=== PATIENT | female | born 1950 | race Caucasian/White ===

== ENCOUNTER 2017-01-27 13:12 | Inpatient (IN) | payer OTHER ==
--- NOTE | ~2017-01-27 | CN ---
Consultation Report [facility] [address] [place]. [address] NAME: YAEL PAYAN : 52 STATUS : ADM Alicia PAT#: [id number] AGE: 66 ADM/REG DATE : 01/27/17 MR#: [id number] REPORT SERV DATE: 01/28/17 DICTATED BY: MAHAMED TEE DATE: 01/28/17 REPORT STATUS : Draft TRANSCRIBED BY: MODL DATE: 01/28/17 INPATIENT CONSULT NOTE DATE OF CONSULTATION: 01/28/2017 REASON FOR CONSULTATION: Bloody diarrhea. HISTORY OF PRESENT ILLNESS: Mrs. Payan is a very pleasant 66-year-old female with past medical history of ADHD, depression, anxiety, hypertension, and diverticulosis as well as prior gastrectomy for gastric volvulus and most recently colonoscopy approximately six months ago with Dr. Zaina Kline with finding of several polyps, who presents with complaints of abdominal cramping and bloody diarrhea. The patient states that she was in her normal state of health until two days prior to this presentation when she started having abdominal cramping that was soon associated with passing of rome blood and blood clots. No fevers or chills. No chest pain. No shortness of breath. No nausea or vomiting. No recent sick contacts. Upon presentation, the patient was noted to have a CBC with a white count of 18.1 and a hemoglobin of 14.5, and a platelet count of 321,000. CT of the abdomen and pelvis was performed, which demonstrated thickened appearance of the colonic wall in the descending and sigmoid colon with inflammation of adjacent fat indicating probable colitis. No other significant abnormalities were noted. GI was consulted for further evaluation and treatment. Due to a Cipro allergy, the patient was started on Zosyn for antibiotics. No stool studies were sent. REVIEW OF SYSTEMS: All systems reviewed and were negative aside from what was mentioned in the history of present illness. PAST MEDICAL HISTORY: Includes: 1. History of gastric volvulus, status post total gastrectomy. 2. ADHD. 3. Depression. 4. Anxiety. 5. History of hypertension. 6. History of diverticulosis. 7. Hiatal hernia. 8. GERD. 9. Tonsillectomy. 10.Bilateral salpingo-oophorectomy. 11.Hysterectomy. 12.Septoplasty and blepharoplasty. Consultation Report [facility] [address] [place]. [address] NAME: YAEL PAYAN : 52 STATUS : ADM Alicia PAT#: [id number] AGE: 66 ADM/REG DATE : 01/27/17 MR#: [id number] REPORT SERV DATE: 01/28/17 DICTATED BY: MAHAMED TEE DATE: 01/28/17 REPORT STATUS : Draft TRANSCRIBED BY: MODL DATE: 01/28/17 FAMILY HISTORY: The patient denies any family history of GI related malignancy. SOCIAL HISTORY: The patient denies any tobacco, alcohol, or IV drug use. ALLERGIES: THE PATIENT HAS ALLERGIES TO: 1. PHENERGAN. 2. CIPRO. 3. REGLAN. OUTPATIENT MEDICATIONS: 1. Tylenol. 2. Norvasc. 3. Adderall. 4. Hydrochlorothiazide. 5. Lamictal. 6. Ativan. 7. Remeron. 8. Effexor. PHYSICAL EXAMINATION: VITAL SIGNS: Most recent vital signs include a temperature of 97.9 with a T-max of 98.6, pulse of 66, blood pressure of 111/68, saturating 96% on room air. GENERAL INSPECTION: Reveals an elderly female, lying in bed, no apparent distress. HEENT: Normocephalic with ecchymoses around her orbits bilaterally, right greater than left, suspicious for recent head trauma. Sclerae nonicteric. Pupils are equal and round. Mucous membranes are moist. NECK: Supple without lymphadenopathy. HEART: Rate is regular with normal S1 and S2. LUNGS: Sounds clear to auscultation bilaterally without wheezes, rales, or rhonchi. ABDOMEN: Soft, nontender, nondistended with normoactive bowel sounds. EXTREMITIES: The patient has no cyanosis, clubbing, or edema. No jaundice or rash. No gross motor deficits. She is alert and oriented. Mood and affect are appropriate. Judgment appears to be intact. LABORATORY DATA: Most recent laboratory results include CBC that shows white count of 15.9, hemoglobin of 12.5, and a platelet count of 279,000. Comprehensive metabolic panel was mostly remarkable for potassium of 2.5, but was otherwise entirely unremarkable. DIAGNOSTIC STUDIES: CT of the abdomen and pelvis was reviewed personally by myself and is as noted in the history of present illness showing an area of thickening in the descending and sigmoid colon suggestive of colitis. ASSESSMENT AND PLAN: Ms. Payan is a very pleasant 66-year-old female with no significant past medical history, although it should be noted that the patient just had a colonoscopy Consultation Report [place] [id number] [place]. [address] NAME: YAEL PAYAN : 52 STATUS : ADM Alicia PAT#: [id number] AGE: 66 ADM/REG DATE : 01/27/17 MR#: [id number] REPORT SERV DATE: 01/28/17 DICTATED BY: MAHAMED TEE DATE: 01/28/17 REPORT STATUS : Draft TRANSCRIBED BY: MODL DATE: 01/28/17 approximately six months ago with her primary gastrologist is Dr. Zaina Kline, who now presents with abdominal cramping, bloody diarrhea, and findings of colitis on CT with an elevated white count. This is suspicious for infectious colitis, although ischemic colitis is also possibility, very highly doubtful that there is probability of malignancy given that the patient just recently had a colonoscopy within the past year. We would recommend proceeding with colonoscopy at this time as the patient has already undergone a bowel prep. However, stool studies are still in order at this point in time to rule out any obvious infectious agents regardless we would treat the patient with a 10-day course of antibiotics. Given her Cipro allergy, would give her Zosyn and transitioned to Augmentin as an outpatient. The patient can follow up with Dr. Kline as an outpatient when she is feeling well enough to go over biopsy results and to see if there are any further symptoms. We would also highly recommend correcting the patient's hypokalemia. Thank you very much for this interesting consult and allowing me to participate in Ms. Payan's care. Please call with any questions or concerns you may have. C/MODL Mahamed Tee MD / [id number] CC: Mahamed Cordero Jr, MD Arlene Donowitz, M.D.
--- NOTE | ~2017-01-27 | DS ---
Discharge Summary [facility] [address] [place]. [address] NAME: YAEL MORGAN : 52 STATUS : DIS IN PAT#: [id number] AGE: 66 ADM/REG DATE : 01/27/17 MR#: [id number] REPORT SERV DATE: 01/30/17 DICTATED BY: JR. CORDERO WILLIAM JOHN DATE: 01/29/17 REPORT STATUS : Draft TRANSCRIBED BY: GRACIELA DATE: 01/29/17 ADMISSION DATE: 01/27/2017 DISCHARGE DATE: 01/29/2017 DISCHARGE DIAGNOSES: Include: 1. Sigmoid and descending colon colitis. 2. Hematochezia. 3. Colonic stricture. 4. Mild acute kidney injury, which is resolved. 5. History of hypertension. 6. History of attention deficit hyperactivity disorder. 7. History of depression. 8. Hypokalemia. OPERATIONS/PROCEDURES AND TREATMENTS: Include: 1. Colonoscopy, which was incomplete on 01/28/2017, which showed a stricture at 60 mm proximal to the anus which was biopsied. She was unable to pass the scope beyond this point. 2. Blood cultures x2 done 01/27/2017 that were no growth to date. 3. C. diff by PCR on 01/28/2017 that was negative. 4. Cryptosporidium and Giardia antigen on 01/28/2017 that were negative. Fecal leukocytes on 01/28/2017 showed 6-10 white blood cells per high-powered field. 5. Chest x-ray done 01/27/2017 showed minimal right basilar atelectasis. Otherwise, no acute process. 6. CT of the abdomen and pelvis done 01/27/2017 showed thickened appearance of colonic cancino in the descending and sigmoid colon with inflammation in the adjacent fat indicating probable colitis. There was a small hiatal hernia. There was a low dense focal kayce posterior to the uncinate process of the pancreas possibly representing a cyst. Non-emergent followup should be considered. DISCHARGE MEDICATIONS: Include: 1. Norvasc 10 mg orally daily. 2. Adderall 60 mg orally daily. 3. Lamictal 400 mg orally daily. 4. Ativan 2 mg at bedtime. 5. Mirtazapine 45 mg orally twice a day. 6. Effexor XR 450 mg orally daily. 7. Hydrochlorothiazide 25 mg orally daily. 8. Tylenol as needed. 9. Augmentin 875 mg orally twice a day for 10 days. HOSPITAL COURSE: The patient was a 66-year-old female, presented to emergency room on 01/27/2017 with bright red blood per rectum. The patient has a long history including gastric volvulus with perforation and had a prolonged hospitalization with LTAC stay and multiple intraabdominal abscesses at that time. The patient is followed by Dr. Zaina Kline as an outpatient, had a recent colonoscopy. She started experiencing difficulty Discharge [address] [place]. [place]. [address] NAME: YAEL MORGAN : 51 STATUS : DIS IN PAT#: [id number] AGE: 66 ADM/REG DATE : 01/27/17 MR#: [id number] REPORT SERV DATE: 01/30/17 DICTATED BY: JR. CORDERO WILLIAM JOHN DATE: 01/29/17 REPORT STATUS : Draft TRANSCRIBED BY: GRACIELA DATE: 01/29/17 with diarrhea on Friday with abdominal pain and then developed some hematochezia and presented to the hospital. For initial exam, her heart rate was 101, blood pressure 113/69. She was afebrile. Respiratory rate 16. Exam showed the abdomen to be soft, mildly tender in the left lower quadrant. No guarding or rebound. Significant laboratory included a potassium of 3.2, bicarbonate of 25, BUN 24, creatinine 1.3. Liver function enzymes were normal. White blood count was 18.1. CT of the abdomen and pelvis as detailed above. The patient was felt to have colitis. She was started on Zosyn as she has an allergy to fluoroquinolones. She was seen in consultation by Dr. Montes of Gastroenterology and underwent a colonoscopy with the presence of a stricture at 60 cm and unable to pass the scope beyond that point. Biopsies were performed. Given that the patient has recently had a complete colonoscopy, Dr. Montes feels it is reasonable to discharge the patient. She had no further rectal bleeding, had no anemia. She will be discharged home on Augmentin 875 mg orally twice a day for 10 additional days. Regarding the peripancreatic cyst, followup is recommended. Regarding mild acute kidney injury, this resolved with IV fluid hydration. There were no other issues during this hospital stay. The patient will be discharged home today 01/29/2017. She will follow up with Dr. Zaina Kline in two to four weeks and Dr. Melani Lozano as scheduled on 02/04/2017. FOLLOWUP ISSUES: 1. Follow up with Gastroenterology. 2. Consider outpatient imaging with a CT of the abdomen and pelvis to follow up with the abnormal CT. DISCHARGE DIET: The patient is to advance her diet to regular as tolerated. ACTIVITY: Ad wei. For discharge exam and laboratory, please see daily progress note. This discharge took 33 minutes for patient encounter, coordination of care, and documentation. PEACE/GRACIELA Mahamed Cordero Jr, MD / [id number] CC: Discharge Summary [address] [address] NAME: YAEL MORGAN : 52 STATUS : DIS IN PAT#: [id number] AGE: 66 ADM/REG DATE : 01/27/17 MR#: [id number] REPORT SERV DATE: 01/30/17 DICTATED BY: JR. CORDERO WILLIAM JOHN DATE: 01/29/17 REPORT STATUS : Draft TRANSCRIBED BY: GRACIELA DATE: 01/29/17 Mahamed Cordero Jr, MD Arlene Donowitz, M.D.
--- NOTE | ~2017-01-27 | HP ---
History And Physical [place] [id number] [facility] [place]. [address] NAME: YAEL MORGAN : 52 STATUS : ADM Alicia PAT#: [id number] AGE: 66 ADM/REG DATE : 01/27/17 MR#: [id number] REPORT SERV DATE: 01/27/17 DICTATED BY: ROSANA PAIGE DATE: 01/27/17 REPORT STATUS : Draft TRANSCRIBED BY: MODMaia DATE: 01/27/17 DATE OF ADMISSION: 01/27/2017 CHIEF COMPLAINT: Abdominal pain and red blood per rectum for three days. HISTORY OF PRESENT ILLNESS: This is a very pleasant 66-year-old female. She does have a history of ADHD, depression, and hypertension. She had in 2009 gastric volvulus with perforation. She has had a prolonged hospitalization, prolonged rehab. Since then, she remained with some GERD. She is a patient of Dr. Zaina Kline. She did have a colonoscopy in the past. According to her, she is telling me that she has diverticulosis. She did have some rectal bleed according to Dr. Zaina Kline, with whom I talked personally, was related to hemorrhoids. She started to experience significant diarrhea on Friday and abdominal pain. That has been changed to red blood per rectum with some clots that had started last night and since then, she continued to have just red blood per rectum. The patient did not have any fever. No chest pain or shortness of breath. No cough. No sputum production. No hematemesis, no melena. No recent hospitalization. No sick contacts. No other complaints. After initial evaluation in the emergency room, the patient has been admitted to Hospitalist Service for further evaluation and treatment. PAST MEDICAL HISTORY: Significant for gastric volvulus, perforation, peritonitis, sepsis, septic shock, history of ADHD, depression, anxiety, history of hypertension, history of diverticulosis, hiatal hernia, total gastrectomy, and GERD. PAST SURGICAL HISTORY: Tonsillectomy, bilateral salpingo-oophorectomies, hysterectomy, partial gastrectomy, septoplasty, blepharoplasty. SOCIAL HISTORY: Denies tobacco, alcohol, or IV drugs. ALLERGIES: SHE IS ALLERGIC TO PHENERGAN, CIPRO, AND REGLAN. MEDICATIONS: At home include Tylenol, Norvasc, Adderall, hydrochlorothiazide, Lamictal, Ativan, Remeron, and Effexor. FAMILY HISTORY: Significant for coronary artery disease and hypertension. REVIEW OF SYSTEMS: A 14-point review of systems has been obtained and pertinent positive has been listed into the history of present illness. Otherwise, negative except those underlying above. OBJECTIVE: VITAL SIGNS: The patient is currently is afebrile. Blood pressure 113/69, heart rate 101, respiratory rate 16, and saturating 97% on room air. GENERAL: She is a very pleasant, well-developed, well-nourished female, in no acute distress. She is alert and oriented x3. Nonfocal. She follows all her commands appropriately. HEENT: Shows pupils equal, round, reactive to light. Extraocular movements intact. No JVD. No lymphadenopathy. No thyromegaly appreciated. History And Physical [address] [address] NAME: YAEL MORGAN : 52 STATUS : ADM Alicia PAT#: [id number] AGE: 66 ADM/REG DATE : 01/27/17 MR#: [id number] REPORT SERV DATE: 01/27/17 DICTATED BY: ROSANA PAIGE DATE: 01/27/17 REPORT STATUS : Draft TRANSCRIBED BY: MODMaia DATE: 01/27/17 CHEST: Eval shows bilateral air entry. Clear anteroposterior. No wheezes, crackles, or rhonchi appreciated. CARDIOVASCULAR: She has regular rate, slightly tachycardic. S1, S2 positive. No S3, no S4. No murmurs, rubs, or gallops appreciated. ABDOMEN: Soft, mildly tender on the left lower quadrant. No guarding. No rebound. EXTREMITIES: No clubbing, cyanosis, or edema. NEUROLOGIC: The patient is alert and oriented x3. She is nonfocal. She follows all her commands appropriately. LABORATORY DATA: Labs from today include sodium 139, potassium 3.2, chloride 103, CO2 of 25, BUN 24, creatinine is 1.28, glucose is 96. Her liver function test shows total bilirubin of 0.5, alkaline phosphatase 84, ALT 22, AST 11. Her white count is 18.1, hemoglobin 14.5, hematocrit 42.5, platelets are 321. Her INR is 1. There is a CT scan of the abdomen and pelvis that has been performed in the emergency room that has shown there is a thickened appearance of the colonic wall in the descending and sigmoid colon with inflammation of the fat, indicated probable colitis, small hiatal hernia, and low-density focal area posterior to the uncinate process of the pancreas which could represent a pancreatic cystic lesion, partial volume averaging of duodenal diverticulum and hysterectomy. ASSESSMENT: This is a very pleasant 66-year-old female presenting to [facility] with abdominal pain and rectal bleed with: 1. Sigmoid and descending colitis, suspect diverticulitis. 2. Red blood per rectum. 3. Mild acute kidney injury. 4. History of hypertension. 5. History of depression. 6. Attention deficit hyperactivity disorder. 7. Hypokalemia. PLAN: 1. The patient is going to be admitted to Hospitalist Service. We are going to place her on clear liquid diet. We are going to place her on Zosyn, panculture her. We will check a lactic acid. We will check also an abdominal arterial Doppler ultrasound of the mesenteric vessels. We are going to check all her stool studies and provide supportive care. We will consult GI, Dr. Zaina Kline, with whom I talked personally. Provide symptomatic pain and nausea control. 2. Rectal bleed likely secondary to above. We are going to provide H and H q.6 hours and transfuse as indicated, and keep the patient on clear liquid diet for right now. 3. Mild acute kidney injury. Vigorous IV hydration. Check UA and urine cultures as well. 4. Hypokalemia. We are going to replace her potassium as per protocol and also we are going to check magnesium level. 5. Hypertension. We will continue her home medication. Provide p.r.n. hydralazine as needed. 6. History of ADHD. Continue her home medication. 7. History of depression and anxiety. We will continue her home medications. We are going to provide reasonable pain and nausea control as well as GI and DVT prophylaxis History And Physical [place] [id number] [place]. [address] NAME: YAEL MORGAN : 52 STATUS : ADM Alicia PAT#: [id number] AGE: 66 ADM/REG DATE : 01/27/17 MR#: [id number] REPORT SERV DATE: 01/27/17 DICTATED BY: ROSANA PAIGE DATE: 01/27/17 REPORT STATUS : Draft TRANSCRIBED BY: MODL DATE: 01/27/17 with SCDs. That has been discussed extensively with the patient. All the questions have been answered in full. Further workup and recommendation pending above. It is worthwhile to note that the patient is going to be followed up by Dr. Jerry Gee. CF/MODL Rosana Paige M.D. / [id number] CC: MD Melani Moura M.D.
--- NOTE | ~2017-01-27 | EGD ---
EGD REPORT [facility] [address] [place] [address] NAME: RACHELLE GREGORIO : 52 STATUS : ADM Alicia PAT#: [id number] AGE: 66 ADM/REG DATE : 01/27/17 MR#: [id number] REPORT SERV DATE: 01/28/17 DICTATED BY: MAHAMED TEE DATE: 01/28/17 REPORT STATUS : Draft [facility]: [facility] DATE: 01/28/17 Endoscopy Center Patient Name: Rachelle Gregorio Date of : 1950 Attending MD: MAHAMED TEE MD Procedure Date No Time: 01/28/2017 Procedure: Colonoscopy Indications: Hematochezia Referring MD: AMILCAR MCGUIRE Medicines: Monitored Anesthesia Care Complications: No immediate complications. Estimated blood loss: Minimal. Procedure: Pre-Anesthesia Assessment: - ASA Grade Assessment: II - A patient with mild systemic disease. After I obtained informed consent, the scope was passed under direct vision. Throughout the procedure, the patient's blood pressure, pulse, and oxygen saturations were monitored continuously. The CF [id number] was introduced through the anus and advanced to the sigmoid colon. The colonoscopy was technically difficult and complex due to a tortuous colon. The patient tolerated the procedure well. The quality of the bowel preparation was fair. Findings: The perianal and digital rectal examinations were normal. Pertinent negatives include normal sphincter tone and no palpable rectal lesions. A benign-appearing, intrinsic severe stenosis was found at 60 cm proximal to the anus and was non-traversed. There was inflammed tissue at this point, causing obstruction to passage of the scope. Due to inflammation in the area, the scope was not able to be pass through this area. Biopsies were taken with a cold forceps for histology. Estimated blood loss was minimal. A few small-mouthed diverticula were found in the sigmoid colon. The exam was otherwise without abnormality on direct and retroflexion views. Impression: - Stricture with inflammation at 60 cm proximal to the anus. Biopsied. - Diverticulosis in the sigmoid colon. - The examination was otherwise normal on direct and retroflexion views. Recommendation: - Return patient to hospital [facility] for ongoing care. EGD REPORT [address] [place]. [address] NAME: RACHELLE GREGORIO : 52 STATUS : ADM Alicia PAT#: [id number] AGE: 66 ADM/REG DATE : 01/27/17 MR#: [id number] REPORT SERV DATE: 01/28/17 DICTATED BY: MAHAMED TEE DATE: 01/28/17 REPORT STATUS : Draft TRANSCRIBED BY: [employer] DATE: 01/28/17 - Clear liquid diet today. - Await pathology results. - Check stool for ova and parasites on 3 separate stool specimens. - Check stool for Clostridium difficile toxin. - Check routine bacterial stool cultures. - Consider repeat colonoscopy once inflammation resolves for full examination Procedure Code(s): --- Professional --- 43155, 52, Colonoscopy, flexible, proximal to splenic flexure; with biopsy, single or multiple Diagnosis Code(s): --- Professional --- K56.69, Other intestinal obstruction K57.30, Diverticulosis of large intestine without perforation or abscess without bleeding K92.1, Melena CPT copyright 2013 [employer]. All rights reserved. The codes documented in this report are preliminary and upon flight operations inspector review may be revised to meet current compliance requirements. Mahamed Tee MD MAHAMED TEE MD 01/28/2017 10:08 AM This report has been signed electronically. Number of Addenda: 0 Note Initiated On: 01/28/2017 9:12 AM Scope Withdrawal Time 0 hours 5 minutes 59 seconds [address] [place] [address]
[2017-01-27 12:51] LABS: BASOPHILS 0.4 %; BASOPHILS ABSOLUTE 0.08 10/3/uL (0.0-0.16); EOSINOPHILS 0.4 %; EOSINOPHILS ABSOLUTE 0.07 10/3/uL (0.0-0.53); HEMATOCRIT 42.5 % (36.0-48.0); HEMOGLOBIN 14.5 g/dL (12.0-16.0); IMMATURE GRANULOCYTES 0.3 %; IMMATURE GRANULOCYTES ABSOLUTE 0.05 10/3/uL (0.0-0.11); LYMPHOCYTES 11.2 %; LYMPHOCYTES ABSOLUTE 2.03 10/3/uL (0.67-4.30); MEAN CORPUS HGB CONC 34.1 g/dL (32.0-36.0); MEAN PLATELET VOLUME 9.4 fL (9.2-13.0); MONOCYTES 8.1 %; MONOCYTES ABSOLUTE 1.46 10/3/uL (0.21-1.20); NEUTROPHILS 79.6 %; NEUTROPHILS ABSOLUTE 14.39 10/3/uL (2.02-8.40); RBC DISTRIBUTION WIDTH 12.9 % (12.0-16.0); WHITE BLOOD CELLS 18.1 10/3/uL (4.5-10.5)
[2017-01-27 12:52] LABS: MANUAL DIFF NO %; MEAN CORPUSCULAR VOLUME 96.6 fL (80-100); PLATELET COUNT 321 10/3/uL (150-400)
[2017-01-27 13:00] LABS: PARTIAL THROMBO TIME 30.5 SEC (22.5-37.2)
[2017-01-27 13:01] LABS: PROTIME (NOT ORD) 13.3 SEC (12.0-14.5)
[2017-01-27 13:05] LABS: BUN (BLOOD UREA NITROGEN) 24 MG/DL (6-23); CALCIUM, SERUM 9.6 MG/DL (8.5-10.4); CHLORIDE, SERUM 103 MMOL/L (96-112); CO2 (CARBON DIOXIDE) 25 MMOL/L (24-34); GLUCOSE, SERUM 96 MG/DL (60-99); POTASSIUM, SERUM 3.2 MMOL/L (3.5-5.3); SGOT(AST) 11 U/L (5-40); SGPT(ALT) 22 U/L (5-65); SODIUM, SERUM 139 MMOL/L (135-148); TOTAL BILIRUBIN 0.5 MG/DL (0-1.2); TOTAL PROTEIN 7.8 G/DL (6.0-8.5)
[2017-01-27 13:06] LABS: A/G RATIO 1.1 (0.7-1.9); ALKALINE PHOSPHATASE 84 U/L (45-117); CREATININE 1.28 MG/DL (0.55-1.02); GFR AFRICAN AMERICAN 51 ML/MIN (>=60); GFR NON AFRICAN AMERICAN 44 ML/MIN (>=60); GLOBULIN 3.8 G/DL (2.5-4.1)
[~2017-01-27 13:12] MED LIST: ACET500CAP PO; ADDERALL30 MG PO; ATV1 PO; EFFEX75 PO; EFFEXOR XR150 MG PO; ESTRACE1 MG PO; HYDROCHLOROT25 MG PO; LAMICTAL10 PO; LAMICTAL200 MG PO; NORV10 PO; OS500+D PO; PEP20 PO; PRIN10 PO; REG5 PO; REMERON30 MG PO; REMERON45 MG PO
[2017-01-27 20:09] LABS: DIRECT BILIRUBIN 0.1 MG/DL (0.0-0.4); FERRITIN 143 NG/ML (8-252); INDIRECT BILIRUBIN(NOT ORDER) 0.4 MG/DL (0.1-0.9); IRON BINDING CAPACITY 281 MCG/DL (225-410); IRON, SERUM 42 MCG/DL (35-150); PHOSPHORUS, SERUM 3.1 MG/DL (2.5-4.5)
[2017-01-27 20:10] LABS: FOLATE 15.3 NG/ML (>5.2)
[2017-01-27 20:56] LABS: HEMOGLOBIN 12.6 g/dL (12.0-16.0)
[2017-01-27 21:22] LABS: B NATRIURETIC PEPTIDE (BNP) 16.8 PG/ML (< 100.0)
[2017-01-27 23:09] LABS: GLYCOHEMOGLOBIN (HbA1c) 5.2 % (4.7-6.1)
[2017-01-28 01:25] LABS: ASCORBIC ACID (UR NOT ORDER) NEG (NEG); BILIRUBIN, URINE NEGATIVE (NEG); KETONE, URINE TRACE MG/DL (NEG); LEUKOCYTE ESTERASE(NOT OR TRACE (NEG); WBC (NOT ORDERED) (RFLEX) 2 (0-5)
[2017-01-28 01:49] LABS: HEMATOCRIT 36.8 % (36.0-48.0); HEMOGLOBIN 12.5 g/dL (12.0-16.0); MEAN CORPUSCULAR HEMOGLOB 32.9 pg (26.0-34.0); MEAN CORPUSCULAR VOLUME 96.8 fL (80-100); MEAN PLATELET VOLUME 9.2 fL (9.2-13.0); PLATELET COUNT 279 10/3/uL (150-400); RBC DISTRIBUTION WIDTH 12.6 % (12.0-16.0); WHITE BLOOD CELLS 15.9 10/3/uL (4.5-10.5)
[2017-01-28 01:52] LABS: MANUAL DIFF YES %
[2017-01-28 01:57] LABS: PARTIAL THROMBO TIME 28.9 SEC (22.5-37.2); PROTIME (NOT ORD) 13.5 SEC (12.0-14.5)
[2017-01-28 02:08] LABS: A/G RATIO 0.9 (0.7-1.9); ALBUMIN 3.2 G/DL (3.5-5.0); BUN (BLOOD UREA NITROGEN) 22 MG/DL (6-23); CHLORIDE, SERUM 104 MMOL/L (96-112); CO2 (CARBON DIOXIDE) 25 MMOL/L (24-34); GLOBULIN 3.4 G/DL (2.5-4.1); GLUCOSE, SERUM 97 MG/DL (60-99); SGOT(AST) 10 U/L (5-40); SGPT(ALT) 20 U/L (5-65); SODIUM, SERUM 142 MMOL/L (135-148); TOTAL BILIRUBIN 0.6 MG/DL (0-1.2); TOTAL PROTEIN 6.6 G/DL (6.0-8.5)
[2017-01-28 02:10] LABS: ALKALINE PHOSPHATASE 72 U/L (45-117); CALCIUM, SERUM 8.6 MG/DL (8.5-10.4); GFR AFRICAN AMERICAN 105 ML/MIN (>=60); GFR NON AFRICAN AMERICAN 91 ML/MIN (>=60)
[2017-01-28 02:12] LABS: POTASSIUM, SERUM 2.5 MMOL/L (3.5-5.3)
[2017-01-28 02:22] LABS: BAND NEUTROPHILS 2 %; BASOPHILS 1 %; BASOPHILS ABSOLUTE (CALC) 0.16 10/3/uL (0.0-0.16); LYMPHOCYTES 9 %; LYMPHOCYTES ABSOLUTE (CALC) 1.43 10/3/uL (0.67-4.30); MONOCYTES 6 %; MONOCYTES ABSOLUTE (CALC) 0.95 10/3/uL (0.21-1.20); NEUTROPHILS ABSOLUTE (CALC) 13.36 10/3/uL (2.02-8.40); PLATELET ESTIMATE ADQ (ADEQUATE); RBC MORPHOLOGY NORM (NORMAL); SEGMENTED NEUTROPHIL (0) 82 %; TOTAL NUCLEATED CELLS 100
[2017-01-28 06:01] LABS: HEMATOCRIT 36.3 % (36.0-48.0); HEMOGLOBIN 12.2 g/dL (12.0-16.0)
[2017-01-28 14:27] LABS: HEMATOCRIT 36.8 % (36.0-48.0); HEMOGLOBIN 12.3 g/dL (12.0-16.0)
[2017-01-28 20:19] LABS: HEMATOCRIT 33.6 % (36.0-48.0); HEMOGLOBIN 11.3 g/dL (12.0-16.0)
[2017-01-29 02:19] LABS: BASOPHILS 0.4 %; BASOPHILS ABSOLUTE 0.05 10/3/uL (0.0-0.16); EOSINOPHILS 3.1 %; EOSINOPHILS ABSOLUTE 0.37 10/3/uL (0.0-0.53); HEMATOCRIT 34.7 % (36.0-48.0); HEMOGLOBIN 11.6 g/dL (12.0-16.0); IMMATURE GRANULOCYTES 0.2 %; IMMATURE GRANULOCYTES ABSOLUTE 0.02 10/3/uL (0.0-0.11); LYMPHOCYTES 21.1 %; LYMPHOCYTES ABSOLUTE 2.48 10/3/uL (0.67-4.30); MEAN CORPUS HGB CONC 33.4 g/dL (32.0-36.0); MEAN CORPUSCULAR HEMOGLOB 32.7 pg (26.0-34.0); MEAN CORPUSCULAR VOLUME 97.7 fL (80-100); MEAN PLATELET VOLUME 9.2 fL (9.2-13.0); MONOCYTES 8.2 %; MONOCYTES ABSOLUTE 0.96 10/3/uL (0.21-1.20); NEUTROPHILS ABSOLUTE 7.89 10/3/uL (2.02-8.40); PLATELET COUNT 258 10/3/uL (150-400); RBC DISTRIBUTION WIDTH 12.5 % (12.0-16.0); RED CELL COUNT 3.55 10/6/uL (4.0-5.6); WHITE BLOOD CELLS 11.8 10/3/uL (4.5-10.5)
[2017-01-29 02:21] LABS: MANUAL DIFF NO %
[2017-01-29 02:34] LABS: CALCIUM, SERUM 8.4 MG/DL (8.5-10.4); CHLORIDE, SERUM 112 MMOL/L (96-112); CO2 (CARBON DIOXIDE) 28 MMOL/L (24-34); CREATININE 0.61 MG/DL (0.55-1.02); GFR AFRICAN AMERICAN 110 ML/MIN (>=60); GFR NON AFRICAN AMERICAN 95 ML/MIN (>=60); GLUCOSE, SERUM 89 MG/DL (60-99); POTASSIUM, SERUM 3.8 MMOL/L (3.5-5.3); SODIUM, SERUM 147 MMOL/L (135-148)
[2017-01-29 02:35] LABS: BUN (BLOOD UREA NITROGEN) 6 MG/DL (6-23)
[2017-01-29 08:11] LABS: HEMATOCRIT 35.1 % (36.0-48.0); HEMOGLOBIN 11.8 g/dL (12.0-16.0)
[2017-01-29] MEDS ORDERED: AUG875 PO (13:47)
[2017-03-14] MEDS ORDERED: IMDUR30 PO (10:09)
== END 2017-01-29 14:23 | disposition home or self-care (01) | DRG 683 ==
LOC: ER 13:12 → 5SO 17:05
PROVIDERS: Emergency Medicine; Internal Medicine; Internal Medicine Gastroenterology
PROC: 0DBQ8ZX Excision of Anus, Via Natural or Artificial Opening Endoscopic, Diagnostic (ICD-10-PCS; principal; 2017-01-28 09:40)
DX: N17.9 Acute kidney failure, unspecified (principal); K56.69 Other intestinal obstruction; K52.89 Other specified noninfective gastroenteritis and colitis; I10 Essential (primary) hypertension; F90.9 Attention-deficit hyperactivity disorder, unspecified type; F32.9 Major depressive disorder, single episode, unspecified; E87.6 Hypokalemia; K21.9 Gastro-esophageal reflux disease without esophagitis; Z90.710 Acquired absence of both cervix and uterus; Z98.890 Other specified postprocedural states; Z90.3 Acquired absence of stomach [part of]; Z82.49 Family history of ischemic heart disease and other diseases of the circulatory system; Z91.013 Allergy to seafood; Z88.8 Allergy status to other drugs, medicaments and biological substances; Z88.1 Allergy status to other antibiotic agents; Z79.899 Other long term (current) drug therapy
CPT/HCPCS: 36415; 71010; 74176; 80048; 80053; 81001; 82140; 82150; 82248; 82570; 82607; 82728; 82746; 83036; 83540; 83550; 83605; 83615; 83690; 83735; 83880; 83935; 84100; 84132; 84145; 84300; 84439; 84443; 85014; 85018; 85025; 85610; 85730; 86850; 86900; 86901; 86920; 87040; 87045; 87046; 87046-59; 87328; 87329; 87493; 87493-59; 87899; 87899-59; 88305; 89055; 93005; 99285; A9270-GY; C9113; J2543